=== PATIENT | male | born 1990 | race Hispanic/Latino ===

== ENCOUNTER 2018-11-27 02:45 | Emergency (ER) | payer OTHER ==
[~2018-11-27] VITALS: Ht 180.3 cm; Wt 79.4 kg
[2018-11-27] MEDS ORDERED: KETOROLAC TROMETHAMINE 30 MG/ML VIAL IV ONE (03:00)
[2018-11-27] MEDS ORDERED: ONDANSETRON HCL 4 MG ORAL DISINTEGRATING TAB SL ONE (03:00)
[2018-11-27] MEDS ORDERED: TYLENOL WITH C1 EACH PO (03:22)
[2018-11-27] MEDS ORDERED: KETOROLAC TROME10 MG PO (03:22)
[2018-11-27] MEDS ORDERED: ZOFRAN8 MG PO (03:22)
[2018-11-27] MEDS ORDERED: FLOMAX0.4 MG PO (03:22)
--- NOTE | 2018-11-27 03:47 | Diagnostic Imaging Report ---
EXAM: CT ABD/PEL WO CONTRAST-HOPD DATE: 11/27/2018 12:00 AM INDICATION: Back pain, abdominal pain COMPARISON: None TECHNIQUE: The abdomen and pelvis were scanned using a multidetector helical scanner. Coronal and sagittal reformations were obtained. CT low dose techniques were utilized, as applicable. IV Contrast: 0 ml Isovue 300/370 FINDINGS: Lack of IV contrast decreases sensitivity in evaluating abdominal and pelvic organs. LOWER THORAX: No consolidations LIVER/BILIARY: No masses. No ductal dilatation. GALLBLADDER: Unremarkable SPLEEN: Unremarkable PANCREAS: Unremarkable ADRENALS: No nodules KIDNEYS: There is a 3 mm stone in the distal left ureter near the UVJ with trace upstream collecting system dilation. No discrete left renal calculi. Punctate right nephrolithiasis. GI TRACT: No wall thickening or evidence of obstruction. Normal appendix. VESSELS: Unremarkable PERITONEUM/RETROPERITONEUM: No free air or fluid LYMPH NODES: No lymphadenopathy REPRODUCTIVE ORGANS/BLADDER: Bladder is decompressed SOFT TISSUES: Unremarkable BONES: No suspicious bone lesions. IMPRESSION: 3 mm distal left ureteral calculus with trace upstream hydroureteronephrosis and inflammatory changes. Signed by: Dr Sinai Reyes MD on 11/27/2018 3:44 AM
== END 2018-11-27 04:07 | disposition home or self-care (01) ==
LOC: FSED 02:45
DX: R10.9 Unspecified abdominal pain (principal); R30.0 Dysuria; N20.1 Calculus of ureter; F17.210 Nicotine dependence, cigarettes, uncomplicated
CPT/HCPCS: 74176; 80053; 81003; 85025; 99283